=== PATIENT | female | born 1940 | race American Indian/Alaskan Native ===

== ENCOUNTER 2020-04-13 17:26 | Emergency (ER) | payer MEDICARE, MEDICAID ==
--- NOTE | 2020-04-13 19:39 | Emergency Department Report ---
Blank Doc - Documentation Documentation: 79-year-old female that presents with acute headache. Patient takes Aspirin daily. This initial assessment/diagnostic orders/clinical plan/treatment(s) is/are subject to change based on patient's health status, clinical progression and re- assessment by fellow clinical providers in the ED. Further treatment and workup at subsequent clinical providers discretion. Patient/guardians urged not to elope from the ED as their condition may be serious if not clinically assessed and managed. Initial orders include: 1- Patient sent to MAIN ED for further evaluation and treatment 2- CT head 3- labs
[2020-04-13 20:48] LABS: Basophils % (Auto) 0.3 % (0.0-1.8); Eosinophils % (Auto) 0.1 % (0.0-4.3); Hematocrit 35.5 % (30.3-42.9); Hemoglobin 11.6 gm/dl (10.1-14.3); Lymphocytes # (Auto) 1.4 K/mm3 (1.2-5.4); Lymphocytes % (Auto) 20.5 % (13.4-35.0); Mean Corpuscular HGB Conc 33 % (30-34); Mean Corpuscular Volume 86 fl (79-97); Monocytes # (Auto) 0.6 K/mm3 (0.0-0.8); Monocytes % (Auto) 8.3 % (0.0-7.3); Platelet Count 231 K/mm3 (140-440); Red Blood Count 4.14 M/mm3 (3.65-5.03); Red Cell Distribution Width 13.7 % (13.2-15.2)
--- NOTE | 2020-04-13 20:55 | Cat Scan Report ---
CT BRAIN: 04/13/2020 INDICATION / CLINICAL INFORMATION: headache. COMPARISON: None available. FINDINGS: BRAIN/INTRACRANIAL STRUCTURES: Unenhanced CT images of the brain demonstrate no evidence of acute int racranial abnormality. Chronic appearing encephalomalacia and hypoplasia of the left cerebellar hemis phere is noted. This appears to be associated with slight asymmetry in the size of the posterior duke a, suggestive of developmental or remote traumatic or ischemic injury. Right cerebellar hemisphere is unremarkable. Supratentorial structures show no evidence of acute abnormality. Age-related atrophic changes and chr onic white matter hypoattenuation is present. There is no evidence of hemorrhage or mass. There are no abnormal extra-axial fluid collections. EXTRACRANIAL STRUCTURES: Unremarkable. IMPRESSION: No acute abnormality. 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 All CT scans at this location are performed using dose reduction to ALARA by means of automated expos ure control. Signer Name: Yordy Aviles MD Signed: 04/13/2020 8:51 PM Workstation Name: [id number]
[2020-04-13 21:00] LABS: Alanine Aminotransferase 10 units/L (7-56); Albumin 4.4 g/dL (3.9-5); BUN/Creatinine Ratio 21; Blood Urea Nitrogen 17 mg/dL (7-17); Hemolysis Index 1
--- NOTE | 2020-04-14 02:24 | Emergency Department Report ---
ED Headache HPI - General Chief Complaint: Headache Stated Complaint: BILATERAL EARACHE/HEADACHE Time Seen by Provider: 04/13/20 19:38 Source: patient Exam Limitations: no limitations - History of Present Illness Initial Comments: CC: My head is aching. HPI: Mrs. Farfan is a 79 yo female with hx of HTN who presents with 1 day of frontal achy headache and bilateral ear pain. Gradual onset. Mild to moderate in nature. She denies fever. She denies nasal congestion. She reports having similar headache. She arrived via EMS. She lives with her daughter. Timing/Duration: 24 hours Quality: mild Head Injury Location: frontal Recent Head Trauma: occasional headaches Associated Symptoms: denies symptoms Allergies/Adverse Reactions: Allergies No Known Allergies Allergy (Unverified 04/13/20 19:38) ED Review of Systems ROS: Stated complaint: BILATERAL EARACHE/HEADACHE Other details as noted in HPI Comment: All other systems reviewed and negative Constitutional: denies: fever, malaise ENT: ear pain Respiratory: denies: cough Cardiovascular: denies: chest pain ED Past Medical Hx - Past Medical History Previous Medical History?: No Hx Hypertension: Yes - Surgical History Past Surgical History?: No - Social History Smoking Status: Never Smoker Substance Use Type: None ED Physical Exam - General Limitations: No Limitations General appearance: alert, in no apparent distress - Head Head exam: Present: atraumatic, normocephalic - Eye Eye exam: Present: normal appearance - ENT ENT exam: Present: mucous membranes moist, TM's normal bilaterally - Neck Neck exam: Present: normal inspection, full ROM - Respiratory Respiratory exam: Present: normal lung sounds bilaterally. Absent: respiratory distress, wheezes, rales, rhonchi - Cardiovascular Cardiovascular Exam: Present: regular rate, normal rhythm, normal heart sounds. Absent: systolic murmur, diastolic murmur, rubs, gallop - GI/Abdominal GI/Abdominal exam: Present: soft, normal bowel sounds. Absent: distended, tenderness, guarding, rebound - Extremities Exam Extremities exam: Present: normal inspection - Neurological Exam Neurological exam: Present: alert, oriented X3 - Psychiatric Psychiatric exam: Present: normal affect, normal mood - Skin Skin exam: Present: warm, dry, intact, normal color. Absent: rash ED Course Vital Signs 04/13/20 18:44 Temperature 98.3 F Pulse Rate 105 H Respiratory 18 Rate Blood Pressure 108/75 O2 Sat by Pulse 97 Oximetry ED Medical Decision Making - Lab Data Result diagrams: 04/13/20 19:55 04/13/20 19:55 - Radiology Data Radiology results: report reviewed CT BRAIN: 04/13/2020 INDICATION / CLINICAL INFORMATION: headache. COMPARISON: None available. FINDINGS: BRAIN/INTRACRANIAL STRUCTURES: Unenhanced CT images of the brain demonstrate no evidence of acute intracranial abnormality. Chronic appearing encephalomalacia and hypoplasia of the left cerebellar hemisphere is noted. This appears to be associated with slight asymmetry in the size of the posterior fossa, suggestive of developmental or remote traumatic or ischemic injury. Right cerebellar hemisphere is unremarkable. Supratentorial structures show no evidence of acute abnormality. Age-related atrophic changes and chronic white matter hypoattenuation is present. There is no evidence of hemorrhage or mass. There are no abnormal extra-axial fluid collections. EXTRACRANIAL STRUCTURES: Unremarkable. IMPRESSION: No acute abnormality. 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 - Medical Decision Making Ms. Farfan presents with frontal headache bilateral ear pain. No evidence of intracranial hemorrhage subarachnoid hemorrhage on CT head without contrast. No indication bilateral temporal arteritis, glaucoma, sinusitis, otitis media. Recommended Tylenol. No fever, neurological deficits to indicate emergent cause of headache. Referred to outpatient PCP. Critical care attestation.: If time is entered above; I have spent that time in minutes in the direct care of this critically ill patient, excluding procedure time. ED Disposition Clinical Impression: Tension headache Disposition: DC-01 TO HOME OR SELFCARE Is pt being admited?: No Does the pt Need Aspirin: No Condition: Stable Instructions: Acute Headache (ED) Referrals: PRIMARY CARE, [Primary Care Provider] - 3-5 Days
[2020-04-14] MEDS ORDERED: ACETAMINOPHEN 500 MG TAB PO ONE (02:26)
[2020-04-14 03:17] VITALS: BP 143/74
== END 2020-04-14 03:15 | disposition home or self-care (01) ==
LOC: ED 17:26
DX: G44.209 Tension-type headache, unspecified, not intractable (principal); H92.01 Otalgia, right ear; H92.02 Otalgia, left ear; I10 Essential (primary) hypertension
CPT/HCPCS: 36415; 70450; 80053; 85025